=== PATIENT | male | born 1945 | race Native Hawaiian/Other Pacific Islander ===

== ENCOUNTER 2021-05-13 15:49 | Observation (INO) | payer MEDICARE ==
--- NOTE | 2021-05-13 16:28 | Event Note ---
ED Screening Note ED Screening Note: Patient sent in by his primary care doctor, had abnormal EKG today at PCP He is complaining of left-sided chest pain for 1 month He also has shortness of breath He has fatigue and generalized weakness He states he becomes tired whenever he does any task he has no appetite Past medical history of hypertension and thyroiditis This initial assessment/diagnostic orders/clinical plan/treatment(s) is/are subject to change based on patients health status, clinical progression and re- assessment by fellow clinical providers in the ED. Further treatment and workup at subsequent clinical providers discretion. Patient/guardian urged not to elope from the ED as their condition may be serious if not clinically assessed and managed. Initial orders include: cp protocol
--- NOTE | 2021-05-13 16:44 | XRay Report ---
CHEST 2 VIEWS INDICATION / CLINICAL INFORMATION: Chest Pain. COMPARISON: None available. FINDINGS: SUPPORT DEVICES: None. HEART / MEDIASTINUM: No significant abnormality. LUNGS / PLEURA: No significant pulmonary or pleural abnormality. No pneumothorax. ADDITIONAL FINDINGS: Mild/moderate scoliosis is present. IMPRESSION: 1. No acute findings. Signer Name: Maryam Bullock MD Signed: 05/13/2021 4:39 PM Workstation Name: [id number]
[2021-05-13 16:57] LABS: Basophils % (Auto) 0.3 % (0.0-1.8); Eosinophils # (Auto) 0.2 K/mm3 (0.0-0.4); Hematocrit 40.4 % (35.5-45.6); Hemoglobin 13.7 gm/dl (11.8-15.2); Lymphocytes # (Auto) 2.5 K/mm3 (1.2-5.4); Lymphocytes % (Auto) 40.1 % (13.4-35.0); Mean Corpuscular HGB Conc 34 % (32-34); Mean Corpuscular Volume 92 fl (84-94); Monocytes # (Auto) 0.6 K/mm3 (0.0-0.8); Monocytes % (Auto) 9.9 % (0.0-7.3); Platelet Count 349 K/mm3 (140-440); Red Blood Count 4.39 M/mm3 (3.65-5.03); Red Cell Distribution Width 14.2 % (13.2-15.2)
[2021-05-13 17:17] LABS: INR 0.88 (0.87-1.13)
[2021-05-13 17:18] LABS: Partial Thromboplastin Time 27.8 Sec. (24.2-36.6)
[2021-05-13 17:22] LABS: Alanine Aminotransferase 34 units/L (7-56); Blood Urea Nitrogen 15 mg/dL (9-20); Calcium 9.2 mg/dL (8.4-10.2); Hemolysis Index 3
[2021-05-13 17:26] LABS: BUN/Creatinine Ratio 25
[2021-05-13 18:01] LABS: Bilirubin,Urine NEG (Negative); Blood,Urine NEG (Negative); Color,Urine Yellow (Yellow); Mucus,Urine 1+ /HPF; Protein,Urine <15 mg/dL mg/dL (Negative); Urobilinogen,Urine < 2.0 mg/dL (<2.0); WBC,Urine < 1.0 /HPF (0.0-6.0)
--- NOTE | 2021-05-13 18:15 | Emergency Department Report ---
ED General Adult HPI - General Chief complaint: Chest Pain Stated complaint: CHEST PAIN Time Seen by Provider: 05/13/21 16:25 Source: patient Mode of arrival: Ambulatory Limitations: Language Barrier - History of Present Illness Initial comments: Patient presents to the emergency department by request of his primary care physician for intermittent chest pain. Patient is dai-Ogroaly-eypkltbl does not laser machine operator was used. Biopsychologist's number is [id number]. Patient complains of left-sided chest pain that has been coming and going for the last week. He describes the pain as pressure-like in nature when it occurs. Patient states currently he is chest pain-free. Patient denies any stomach pain, shortness breath, or headache. Denies history of diabetes or hyperlipidemia or hypertension. -: Sudden Location: chest Radiation: non-radiation Severity scale (0 -10): 0 Quality: other (Pressure) Consistency: intermittent Improves with: none Worsens with: none Associated Symptoms: denies other symptoms Treatments Prior to Arrival: none - Related Data Allergies Allergy/AdvReac Type Severity Reaction Status Date / Time No Known Allergies Allergy Verified 05/13/21 18:53 ED Review of Systems ROS: Stated complaint: CHEST PAIN Other details as noted in HPI Constitutional: denies: chills, fever Eyes: denies: eye pain, eye discharge, vision change ENT: denies: ear pain, throat pain Respiratory: denies: cough, shortness of breath, wheezing Cardiovascular: chest pain. denies: palpitations Endocrine: no symptoms reported Gastrointestinal: denies: abdominal pain, nausea, diarrhea Genitourinary: denies: urgency, dysuria Musculoskeletal: denies: back pain, joint swelling, arthralgia Skin: denies: rash, lesions Neurological: denies: headache, weakness, paresthesias Psychiatric: denies: anxiety, depression Hematological/Lymphatic: denies: easy bleeding, easy bruising ED Past Medical Hx - Past Medical History Previous Medical History?: Yes ED Physical Exam - General Limitations: Language Barrier General appearance: alert, in no apparent distress - Head Head exam: Present: atraumatic, normocephalic - Eye Eye exam: Present: normal appearance, PERRL, EOMI - ENT ENT exam: Present: mucous membranes moist - Neck Neck exam: Present: normal inspection - Respiratory Respiratory exam: Present: normal lung sounds bilaterally. Absent: respiratory distress - Cardiovascular Cardiovascular Exam: Present: regular rate, normal rhythm. Absent: systolic murmur, diastolic murmur, rubs, gallop - GI/Abdominal GI/Abdominal exam: Present: soft, normal bowel sounds. Absent: distended, tenderness - Rectal Rectal exam: Present: deferred - Extremities Exam Extremities exam: Present: normal inspection - Back Exam Back exam: Present: normal inspection - Neurological Exam Neurological exam: Present: alert, oriented X3, CN II-XII intact. Absent: motor sensory deficit - Psychiatric Psychiatric exam: Present: normal affect, normal mood - Skin Skin exam: Present: warm, dry, intact, normal color. Absent: rash ED Course Vital Signs 05/13/21 05/13/21 05/13/21 16:09 16:56 17:00 Temperature 97.9 F Pulse Rate 93 H Respiratory 20 Rate Blood Pressure 131/68 O2 Sat by Pulse 97 99 97 Oximetry 05/13/21 05/13/21 05/13/21 17:16 17:30 17:46 Temperature Pulse Rate 98 H 84 Respiratory 13 10 L Rate Blood Pressure O2 Sat by Pulse 100 98 100 Oximetry 05/13/21 05/13/21 05/13/21 18:00 18:16 18:30 Temperature Pulse Rate 90 85 83 Respiratory 15 36 H 41 H Rate Blood Pressure O2 Sat by Pulse 100 100 100 Oximetry 05/13/21 18:42 Temperature Pulse Rate Respiratory Rate Blood Pressure O2 Sat by Pulse 99 Oximetry ED Medical Decision Making - Lab Data Result diagrams: 05/13/21 16:42 05/13/21 16:42 Lab Results 05/13/21 05/13/21 05/13/21 Range/Units 16:42 16:42 16:42 WBC 6.2 (4.5-11.0) K/mm3 RBC 4.39 (3.65-5.03) M/mm3 Hgb 13.7 (11.8-15.2) gm/dl Hct 40.4 (35.5-45.6) % MCV 92 (84-94) fl MCH 31 (28-32) pg MCHC 34 (32-34) % RDW 14.2 (13.2-15.2) % Plt Count 349 (140-440) K/mm3 Lymph % (Auto) 40.1 H (13.4-35.0) % [place] % (Auto) 9.9 H (0.0-7.3) % Eos % (Auto) 4.0 (0.0-4.3) % Baso % (Auto) 0.3 (0.0-1.8) % Lymph # (Auto) 2.5 (1.2-5.4) K/mm3 [place] # (Auto) 0.6 (0.0-0.8) K/mm3 Eos # (Auto) 0.2 (0.0-0.4) K/mm3 Baso # (Auto) 0.0 (0.0-0.1) K/mm3 Seg Neutrophils % 45.7 (40.0-70.0) % Seg Neutrophils # 2.8 (1.8-7.7) K/mm3 PT 12.9 (12.2-14.9) Sec. INR 0.88 (0.87-1.13) APTT 27.8 (24.2-36.6) Sec. Sodium 139 (137-145) mmol/L Potassium 4.2 (3.6-5.0) mmol/L Chloride 105.2 (98-107) mmol/L Carbon Dioxide 24 (22-30) mmol/L Anion Gap 14 mmol/L BUN 15 (9-20) mg/dL Creatinine 0.6 L (0.8-1.3) mg/dL Estimated GFR > 60 ml/min BUN/Creatinine Ratio 25 % Glucose 137 H (75-100) mg/dL Calcium 9.2 (8.4-10.2) mg/dL Total Bilirubin 0.30 (0.1-1.2) mg/dL AST 23 (5-40) units/L ALT 34 (7-56) units/L Alkaline Phosphatase 97 (35-129) units/L Troponin T < 0.010 (0.00-0.029) ng/mL NT-Pro-B Natriuret Pep 584.7 (0-900) pg/mL Total Protein 7.4 (6.3-8.2) g/dL Albumin 4.0 (3.9-5) g/dL Albumin/Globulin Ratio 1.2 % Lipase 70 H (13-60) units/L TSH (0.270-4.200) mlU/mL Urine Color (Yellow) Urine Turbidity (Clear) Urine pH (5.0-7.0) Ur Specific [place] (1.003-1.030) Urine Protein (Negative) mg/dL Urine Glucose (UA) (Negative) mg/dL Urine Ketones (Negative) mg/dL Urine Blood (Negative) Urine Nitrite (Negative) Urine Bilirubin (Negative) Urine Urobilinogen (<2.0) mg/dL Ur Leukocyte Esterase (Negative) Urine WBC (Auto) (0.0-6.0) /HPF Urine RBC (Auto) (0.0-6.0) /HPF Urine Mucus /HPF 05/13/21 05/13/21 Range/Units 16:42 Unknown WBC (4.5-11.0) K/mm3 RBC (3.65-5.03) M/mm3 Hgb (11.8-15.2) gm/dl Hct (35.5-45.6) % MCV (84-94) fl MCH (28-32) pg MCHC (32-34) % RDW (13.2-15.2) % Plt Count (140-440) K/mm3 Lymph % (Auto) (13.4-35.0) % [place] % (Auto) (0.0-7.3) % Eos % (Auto) (0.0-4.3) % Baso % (Auto) (0.0-1.8) % Lymph # (Auto) (1.2-5.4) K/mm3 [place] # (Auto) (0.0-0.8) K/mm3 Eos # (Auto) (0.0-0.4) K/mm3 Baso # (Auto) (0.0-0.1) K/mm3 Seg Neutrophils % (40.0-70.0) % Seg Neutrophils # (1.8-7.7) K/mm3 PT (12.2-14.9) Sec. INR (0.87-1.13) APTT (24.2-36.6) Sec. Sodium (137-145) mmol/L Potassium (3.6-5.0) mmol/L Chloride (98-107) mmol/L Carbon Dioxide (22-30) mmol/L Anion Gap mmol/L BUN (9-20) mg/dL Creatinine (0.8-1.3) mg/dL Estimated GFR ml/min BUN/Creatinine Ratio % Glucose (75-100) mg/dL Calcium (8.4-10.2) mg/dL Total Bilirubin (0.1-1.2) mg/dL AST (5-40) units/L ALT (7-56) units/L Alkaline Phosphatase (35-129) units/L Troponin T (0.00-0.029) ng/mL NT-Pro-B Natriuret Pep (0-900) pg/mL Total Protein (6.3-8.2) g/dL Albumin (3.9-5) g/dL Albumin/Globulin Ratio % Lipase (13-60) units/L TSH < 0.005 L (0.270-4.200) mlU/mL Urine Color Yellow (Yellow) Urine Turbidity Clear (Clear) Urine pH 6.0 (5.0-7.0) Ur Specific [place] 1.020 (1.003-1.030) Urine Protein <15 mg/dl (Negative) mg/dL Urine Glucose (UA) 150 (Negative) mg/dL Urine Ketones Neg (Negative) mg/dL Urine Blood Neg (Negative) Urine Nitrite Neg (Negative) Urine Bilirubin Neg (Negative) Urine Urobilinogen < 2.0 (<2.0) mg/dL Ur Leukocyte Esterase Neg (Negative) Urine WBC (Auto) < 1.0 (0.0-6.0) /HPF Urine RBC (Auto) 1.0 (0.0-6.0) /HPF Urine Mucus 1+ /HPF - EKG Data -: EKG Interpreted by Me EKG shows normal: sinus rhythm Rate: normal - Radiology Data Radiology results: report reviewed Critical care attestation.: If time is entered above; I have spent that time in minutes in the direct care of this critically ill patient, excluding procedure time. ED Disposition Clinical Impression: Chest pain Disposition: ADMITTED INPATIENT Is pt being admited?: Yes Does the pt Need Aspirin: Yes Condition: Fair Instructions: Nonspecific Chest Pain, Adult Referrals: JANIE SEYMOUR MD [Primary Care Provider] - 3-5 Days
[2021-05-13] MEDS ORDERED: ASPIRIN 81 MG TAB CHEW PO ONE (19:15)
[2021-05-14] MEDS ORDERED: ONDANSETRON 4 MG/2 ML INJ IV PRN (02:00)
[2021-05-14] MEDS ORDERED: ACETAMINOPHEN 325 MG TAB PO PRN (02:00)
[2021-05-14] MEDS ORDERED: HYDROmorphone 1 MG/1 ML INJ IV PRN (02:00)
[2021-05-14] MEDS ORDERED: METOCLOPRAMIDE 10 MG/2 ML INJ IV PRN (02:00)
[2021-05-14] MEDS ORDERED: MORPHINE 2 MG/1 ML INJ IV PRN (02:00)
--- NOTE | 2021-05-14 02:00 | History and Physical Report ---
History of Present Illness Date of examination: 05/13/21 Date of admission: 05/13/21 19:15 Chief complaint: Chest pain for 1 week History of present illness: 76-year-old male with no significant past medical history sent by his primary care physician for intermittent chest pain of 1 week duration. Patient does not speak Iranian. Registered Account Administrator was used. Patient has Left sided chest pain which is intermittent in nature. Pain is pressure-like. Retrosternal. Nonradiating. Has shortness of breath and has generalized weakness and fatigue.. No nausea or vomiting. No exacerbating or relieving factors. Chest pain is about 6-7 on a scale of 1-10. Intermittent in nature. No stress test or stents were done in the past. Chest pain is pressure-like s ensation Patient is Covid vaccinated. Patient is not exposed to Covid. Past Medical History: No medical history Past Surgical History: No surgical history Social history: lives with family, full code Family history: hypertension Review of Systems ROS: CVS intermittent chest pain for 1 week, no nausea vomiting or shortness of breath or diaphoresis. Constitutional no weight loss or weight gain no fever or chills HEENT no sore throat no post nasal drip no diplopia Neck no neck stiffness no lymph gland enlargement Chest and lungs no shortness of breath cough or wheezing GI no nausea no vomiting no diarrhea Genitourinary system no dysuria no flank pain Musculoskeletal system no muscle pains no joint pains GEOLOGICAL TECHNICAL OFFICER no syncope no seizures Skin no rash no itching Psychiatric no depression no homicidal or suicidal tendencies Hematologic no lymphedema or bruising Endocrine no polydipsia no polyuria no cold intolerance no heat intolerance Past History Past Medical History: No medical history Past Surgical History: No surgical history Social history: lives with family, full code Family history: hypertension Medications and Allergies Allergies Allergy/AdvReac Type Severity Reaction Status Date / Time No Known Allergies Allergy Verified 05/13/21 18:53 Exam - Constitutional Vitals: Temp Pulse Resp BP Pulse Ox 97.9 F 83 26 H 131/68 98 05/13/21 16:09 05/13/21 20:16 05/13/21 20:16 05/13/21 16:09 05/13/21 20:16 General appearance: Present: no acute distress, well-nourished - EENT Eyes: Present: PERRL ENT: hearing intact, clear oral mucosa - Neck Neck: Present: supple, normal ROM - Respiratory Respiratory effort: normal Respiratory: bilateral: CTA - Cardiovascular Heart rate: 78 Rhythm: regular Heart Sounds: Present: S1 & S2. Absent: rub, click - Extremities Extremities: no ischemia, pulses intact, pulses symmetrical, No edema Peripheral Pulses: within normal limits - Abdominal General gastrointestinal: Present: soft, non-tender, non-distended, normal bowel sounds Male genitourinary: Present: deferred - Integumentary Integumentary: Present: clear, warm, dry - Musculoskeletal Musculoskeletal: gait normal, strength equal bilaterally - Psychiatric Psychiatric: appropriate mood/affect, intact judgment & insight - Neurologic Neurologic: CNII-XII intact, moves all extremities - Allied Health Allied health notes reviewed: nursing, case management HEART Score - HEART Score History: Moderately suspicious EKG: Normal Age: > 65 Risk factors: No known risk factors Troponin: Troponin T < 0.010 ng/mL (0.00-0.029) 05/13/21 19:00 Troponin: < normal limit HEART Score: 3 - Critical Actions Critical Actions: 0-3 pts:0.9-1.7%risk of adverse cardiac event.Candidate for discharge Results - Labs CBC & Chem 7: 05/13/21 16:42 05/14/21 04:05 Labs: Laboratory Last Values WBC 6.2 K/mm3 (4.5-11.0) 05/13/21 16:42 RBC 4.39 M/mm3 (3.65-5.03) 05/13/21 16:42 Hgb 13.7 gm/dl (11.8-15.2) 05/13/21 16:42 Hct 40.4 % (35.5-45.6) 05/13/21 16:42 MCV 92 fl (84-94) 05/13/21 16:42 MCH 31 pg (28-32) 05/13/21 16:42 MCHC 34 % (32-34) 05/13/21 16:42 RDW 14.2 % (13.2-15.2) 05/13/21 16:42 Plt Count 349 K/mm3 (140-440) 05/13/21 16:42 Lymph % (Auto) 40.1 % (13.4-35.0) H 05/13/21 16:42 [place] % (Auto) 9.9 % (0.0-7.3) H 05/13/21 16:42 Eos % (Auto) 4.0 % (0.0-4.3) 05/13/21 16:42 Baso % (Auto) 0.3 % (0.0-1.8) 05/13/21 16:42 Lymph # (Auto) 2.5 K/mm3 (1.2-5.4) 05/13/21 16:42 [place] # (Auto) 0.6 K/mm3 (0.0-0.8) 05/13/21 16:42 Eos # (Auto) 0.2 K/mm3 (0.0-0.4) 05/13/21 16:42 Baso # (Auto) 0.0 K/mm3 (0.0-0.1) 05/13/21 16:42 Seg Neutrophils % 45.7 % (40.0-70.0) 05/13/21 16:42 Seg Neutrophils # 2.8 K/mm3 (1.8-7.7) 05/13/21 16:42 PT 12.9 Sec. (12.2-14.9) 05/13/21 16:42 INR 0.88 (0.87-1.13) 05/13/21 16:42 APTT 27.8 Sec. (24.2-36.6) 05/13/21 16:42 Sodium 139 mmol/L (137-145) 05/13/21 16:42 Potassium 4.2 mmol/L (3.6-5.0) 05/13/21 16:42 Chloride 105.2 mmol/L (98-107) 05/13/21 16:42 Carbon Dioxide 24 mmol/L (22-30) 05/13/21 16:42 Anion Gap 14 mmol/L 05/13/21 16:42 BUN 15 mg/dL (9-20) 05/13/21 16:42 Creatinine 0.6 mg/dL (0.8-1.3) L 05/13/21 16:42 Estimated GFR > 60 ml/min 05/13/21 16:42 BUN/Creatinine Ratio 25 % 05/13/21 16:42 Glucose 137 mg/dL (75-100) H 05/13/21 16:42 Calcium 9.2 mg/dL (8.4-10.2) 05/13/21 16:42 Total Bilirubin 0.30 mg/dL (0.1-1.2) 05/13/21 16:42 AST 23 units/L (5-40) 05/13/21 16:42 ALT 34 units/L (7-56) 05/13/21 16:42 Alkaline Phosphatase 97 units/L (35-129) 05/13/21 16:42 Troponin T < 0.010 ng/mL (0.00-0.029) 05/13/21 19:00 NT-Pro-B Natriuret Pep 584.7 pg/mL (0-900) 05/13/21 16:42 Total Protein 7.4 g/dL (6.3-8.2) 05/13/21 16:42 Albumin 4.0 g/dL (3.9-5) 05/13/21 16:42 Albumin/Globulin Ratio 1.2 % 05/13/21 16:42 Lipase 70 units/L (13-60) H 05/13/21 16:42 TSH < 0.005 mlU/mL (0.270-4.200) L 05/13/21 16:42 Urine Color Yellow (Yellow) 05/13/21 Unknown Urine Turbidity Clear (Clear) 05/13/21 Unknown Urine pH 6.0 (5.0-7.0) 05/13/21 Unknown Ur Specific [place] 1.020 (1.003-1.030) 05/13/21 Unknown Urine Protein <15 mg/dl mg/dL (Negative) 05/13/21 Unknown Urine Glucose (UA) 150 mg/dL (Negative) 05/13/21 Unknown Urine Ketones Neg mg/dL (Negative) 05/13/21 Unknown Urine Blood Neg (Negative) 05/13/21 Unknown Urine Nitrite Neg (Negative) 05/13/21 Unknown Urine Bilirubin Neg (Negative) 05/13/21 Unknown Urine Urobilinogen < 2.0 mg/dL (<2.0) 05/13/21 Unknown Ur Leukocyte Esterase Neg (Negative) 05/13/21 Unknown Urine WBC (Auto) < 1.0 /HPF (0.0-6.0) 05/13/21 Unknown Urine RBC (Auto) 1.0 /HPF (0.0-6.0) 05/13/21 Unknown Urine Mucus 1+ /HPF 05/13/21 Unknown Short CBC 05/13/21 Range/Units 16:42 WBC 6.2 (4.5-11.0) K/mm3 Hgb 13.7 (11.8-15.2) gm/dl Hct 40.4 (35.5-45.6) % Plt Count 349 (140-440) K/mm3 BMP 05/13/21 05/14/21 16:42 04:05 Sodium 139 139 Potassium 4.2 3.9 Chloride 105.2 105.0 Carbon Dioxide 24 23 BUN 15 13 Creatinine 0.6 L 0.5 L Glucose 137 H 85 Calcium 9.2 8.8 Cardiac Enzymes 05/13/21 05/13/21 05/14/21 Range/Units 16:42 19:00 04:05 Troponin T < 0.010 < 0.010 < 0.010 (0.00-0.029) ng/mL Liver Function 05/13/21 Range/Units 16:42 Total Bilirubin 0.30 (0.1-1.2) mg/dL AST 23 (5-40) units/L ALT 34 (7-56) units/L Alkaline Phosphatase 97 (35-129) units/L Albumin 4.0 (3.9-5) g/dL Urine 05/13/21 Range/Units Unknown Urine Color Yellow (Yellow) Urine pH 6.0 (5.0-7.0) Ur Specific [place] 1.020 (1.003-1.030) Urine Protein <15 mg/dl (Negative) mg/dL Urine Glucose (UA) 150 (Negative) mg/dL - Imaging and Cardiology EKG: report reviewed (Sinus rhythm no acute ST-T wave changes) Assessment and Plan Advance Directives: Yes (Full code) VTE prophylaxis?: Chemical Plan of care discussed with patient/family: Yes - Patient Problems (1) Acute coronary syndrome Current Visit: Yes Status: Acute Plan to address problem: Chest pain protocol Serial troponins and CK-MBs Lexiscan in a.m. (2) GERD (gastroesophageal reflux disease) Current Visit: Yes Status: Chronic Qualifiers: Esophagitis presence: with esophagitis Plan to address problem: On famotidine (3) Decreased thyroid stimulating hormone (TSH) level Current Visit: Yes Status: Chronic Plan to address problem: Check thyroid profile to rule out thyrotoxicosis (4) DVT prophylaxis Current Visit: Yes Status: Acute Plan to address problem: On anticoagulation and GI prophylaxis
[2021-05-14] MEDS: HEPARIN 5,000 UNIT/1 ML VIAL SUB-Q SCH ×2 (02:55→10:45)
[2021-05-14 05:08] LABS: Blood Urea Nitrogen 13 mg/dL (9-20); Calcium 8.8 mg/dL (8.4-10.2); Hemolysis Index 1
[2021-05-14 05:09] LABS: BUN/Creatinine Ratio 26
[2021-05-14] MEDS ORDERED: REGADENOSON 0.4 MG/5 ML INJ IV ONE (07:04)
[2021-05-14] MEDS ORDERED: FAMOTIDINE 20 MG TAB PO SCH (10:00)
--- NOTE | 2021-05-14 10:15 | Electrocardiograph Report ---
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
--- NOTE | 2021-05-14 11:27 | Nuclear Medicine Report ---
APPROVED REPORT Exam: Nuclear Stress Test Indication: Chest pain Ht: 4 ft 10 in Wt: 105 lbs BSA: 1.38 m2 BMI: 21.94 Rhythm: NSR Stress Test Details Stress Test: Pharmacologic stress testing performed using 0.4 mg of regadenoson per 5 mL given IV over 10 seconds. Reason for pharmacologic stress test: physical limitation. HR Resting HR: 85 bpm Max HR Achieved: 119 bpm Max Heart Rate (APMHR): 145 bpm Target HR (85% APMHR): 123 bpm % of APMHR: 82 Recovery HR: 106 bpm HR response to stress: Normal HR response to stress BP Resting BP: 118/68 mmHg Max BP: 133/74 mmHg Recovery BP: 122/63 mmHg BP response to stress: Normal blood pressure response to stress. ECG Resting ECG: Sinus Rhythm Stress ECG: Sinus Tachycardia Arrhythmia: None Recovery ECG: SINUS TACHYCARDIA Recovery Arrhythmia: None Clinical Reason for Termination: Completed protocol Stress Symptoms: None NM EXAM: Myocardial Perfusion REST/STRESS Imaging Protocol: Rest Tc-99m/Stress Tc-99m 1 day Resting Data Rest SPECT myocardial perfusion imaging was performed in supine position 45 minutes following the intravenous injection of 10 mCi of Tc-99m Myoview. Time of rest injection: 0645 Date: 05/14/2021 Pharmacologic Stress Pharmacologic stress test was performed by injecting Regadenoson 0.4 mg IV push followed by the intravenous injection of 28 mCi of Tc-99m Myoview. Time of stress injection: 0840 Date: 05/14/2021 Gated Stress SPECT was performed 30 minutes after stress injection. The images were gated to evaluate regional wall motion and calculate left ventricular ejection fraction. Study Quality Study: excellent Lung Uptake: Normal Study Data TID = 0.90. Perfusion Wall Motion The rest and stress images show normal left ventricular wall motion. Nuclear Conclusion ECG Findings: negative for ischemia Clinical Findings: negative for ischemia Nuclear Findings: negative for ischemia Exercise Capacity: normal Left Ventricular Function: normal Normal study. No scintigraphic evidence for myocardial ischemia or scar. Normal left ventricular size and function with no regional wall motion abnormalities.
[2021-05-14 11:32] LABS: Free T4 (Free Thyroxine) 2.33 ng/dL (0.76-1.46)
--- NOTE | 2021-05-14 12:11 | Discharge Summary ---
Providers - Providers Date of Admission: 05/13/21 19:15 Date of discharge: 05/14/21 Attending physician: JACQUELINE MENDES MD Primary care physician: JANIE SEYMOUR MD Hospitalization Reason for admission: Chest pain Condition: Fair Hospital course: Chief complaint: Chest pain for 1 week History of present illness: 76-year-old male with no significant past medical history sent by his primary care physician for intermittent chest pain of 1 week duration. Patient does not speak Telugu. Box Truck Driver was used. Patient has Left sided chest pain which is intermittent in nature. Pain is pressure-like. Retrosternal. Nonradiating. Has shortness of breath and has generalized weakness and fatigue.. No nausea or vomiting. No exacerbating or relieving factors. Chest pain is about 6-7 on a scale of 1-10. Intermittent in nature. No stress test or stents were done in the past. Chest pain is pressure-like sensation Patient is Covid vaccinated. Patient is not exposed to Covid. Hospital course Patient was admitted for chest pain via our chest pain pathway. Serial troponins x3 were negative. EKG did not demonstrate ST segment elevation. Labs did demonstrate a low TSH of 0.005. Repeat test demonstrated TSH 0.006 and free T4 of 2.33. We recommend outpatient follow-up regarding this thyroid panel. A cardiac stress test was completed on patient and was negative for ischemia. The patient will be discharged home with instructions to follow-up with primary care doctor in 3 to 5 days. Disposition: 01 HOME / SELF CARE / HOMELESS Final Discharge Diagnosis (Prints w/discharge instructions): Acute coronary syndrome Time spent for discharge: 25 - Discharge Diagnoses (1) Acute coronary syndrome Status: Acute (2) Chest pain Status: Acute (3) Decreased thyroid stimulating hormone (TSH) level Status: Chronic (4) GERD (gastroesophageal reflux disease) Status: Chronic Qualifiers: Esophagitis presence: with esophagitis Core Measure Documentation - Palliative Care Palliative Care/ Comfort Measures: Not Applicable - Core Measures Any of the following diagnoses?: none Exam - Physical Exam Narrative exam: General appearance: Present: no acute distress, well-nourished - EENT Eyes: Present: PERRL ENT: hearing intact, clear oral mucosa - Neck Neck: Present: supple, normal ROM - Respiratory Respiratory effort: normal Respiratory: bilateral: CTA - Cardiovascular Heart rate: 78 Rhythm: regular Heart Sounds: Present: S1 & S2. Absent: rub, click - Extremities Extremities: no ischemia, pulses intact, pulses symmetrical, No edema Peripheral Pulses: within normal limits - Abdominal General gastrointestinal: Present: soft, non-tender, non-distended, normal bowel sounds Male genitourinary: Present: deferred - Integumentary Integumentary: Present: clear, warm, dry - Musculoskeletal Musculoskeletal: gait normal, strength equal bilaterally - Psychiatric Psychiatric: appropriate mood/affect, intact judgment & insight - Neurologic Neurologic: CNII-XII intact, moves all extremities - Allied Health Allied health notes reviewed: nursing, case management - Constitutional Vitals: Temp Pulse Resp BP Pulse Ox 97.9 F 87 21 144/72 96 05/14/21 10:48 05/14/21 10:48 05/14/21 10:48 05/14/21 10:48 05/14/21 10:48 Plan Activity: advance as tolerated Weight Bearing Status: Weight Bear as Tolerated Diet: low fat, low cholesterol, low salt Follow up with: JANIE SEYMOUR MD [Primary Care Provider] - 3-5 Days
[2021-05-14 12:24] VITALS: BP 123/71
== END 2021-05-14 15:15 | disposition home or self-care (01) ==
LOC: ED 15:49 → 4A 19:15
PROVIDERS: ADMIT Internal Medicine; ATTEND Internal Medicine
DX: I24.9 Acute ischemic heart disease, unspecified (principal); R07.89 Other chest pain; K21.9 Gastro-esophageal reflux disease without esophagitis; E03.9 Hypothyroidism, unspecified
CPT/HCPCS: 36415; 71046; 78452; 80048; 80053; 81001; 83690; 83880; 84439; 84443; 84484; 85025; 85610; 85730; 93005; 93017; 96372; 99285; A9502; G0378; J1644; J2785

== ENCOUNTER 2021-11-16 14:30 | Emergency (ER) | payer MEDICARE ==
[2021-11-16 15:35] VITALS: BP 112/67
--- NOTE | 2021-11-18 17:50 | Electrocardiograph Report ---
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
== END 2021-11-17 00:15 | disposition left against medical advice (07) ==
LOC: ED 14:30
DX: R07.9 Chest pain, unspecified (principal); Z53.21 Procedure and treatment not carried out due to patient leaving prior to being seen by health care provider
CPT/HCPCS: 93005